=== PATIENT | female | born 1990 | race Caucasian/White ===

== ENCOUNTER 2017-01-14 11:20 | Inpatient (IN) | payer OTHER ==
[~2017-01-14] VITALS: Ht 154.9 cm; Wt 74.1 kg
--- NOTE | ~2017-01-14 | FD ---
ADMIT: 01/14/2017 RM/LOC: 225 [facility] MR#: [id number] 2620 [facility] [address] [place] [id number] FANI SOTO [facility] [place] [address] Final Diagnosis SEX: F AGE: 26 : 1990 ADMISSION DATE: 01/14/2017 DISCHARGE DATE: 01/16/2017 FINAL DIAGNOSIS: Intrauterine at term. PROCEDURE: Spontaneous vaginal delivery. Althea Miramontes MD/ yayo JOB #: [id number] CC: Althea Miramontes MD, Attending Physician Althea Miramontes MD, Family Physician
--- NOTE | ~2017-01-14 | HP ---
ADMIT: 01/14/2017 RM/LOC: 225 [facility] MR#: [id number] [address] [place] [id number] FANI SOTO [address] [place] [address] History and Physical SEX: F AGE: 26 : 1990 DATE OF SERVICE: REASON FOR ADMISSION: Contractions. HISTORY OF PRESENT ILLNESS: The patient is a 26-year-old 2, para 0-0- 1-0, who presented to Labor and Delivery at 40-3/7th weeks' gestation with complaints of contractions. The patient's has been uncomplicated. At time of admission, the patient complained of contractions. She denied any vaginal bleeding or loss of fluid. LABORATORY DATA: Blood type A positive. Antibody screen negative. HIV negative. Gonorrhea and chlamydia negative. Rubella immune. RPR nonreactive. Hep B surface antigen negative. Normal quad screen. Normal 1- hour glucose tolerance test, and group B Strep negative. PAST MEDICAL HISTORY: Noncontributory. PAST SURGICAL HISTORY: D and C in 2015 for missed . CURRENT MEDICATIONS: vitamins daily. ALLERGIES: NO KNOWN MEDICAL ALLERGIES. SOCIAL HISTORY: The patient is . She denies any alcohol, tobacco, or drug use. FAMILY HISTORY: Noncontributory. PHYSICAL EXAMINATION: VITAL SIGNS: On admission, vital signs are stable. The patient is afebrile. GENERAL: The patient is alert and oriented, no acute distress. HEART: Regular rate and rhythm without murmurs, gallops, or rubs. LUNGS: Clear to auscultation bilaterally. ADMIT: 01/14/2017 RM/LOC: 225 [facility] MR#: [id number] [address] [place] [id number] FANI SOTO [address] [facility] [place] [address] History and Physical SEX: F AGE: 26 : 1990 ABDOMEN: Soft, nontender, gravid. EXTREMITIES: No edema. No calf tenderness. heart tones are in the 140s with moderate variability and accelerations present. Contractions every 2-5 minutes. Cervix 3 cm dilated, 70% effaced, and -2 station. ASSESSMENT AND PLAN: 1. A 26-year-old 2, para 0-0-1-0 at 40-3/7th weeks' gestation. 2. Active labor. Plan to admit in labor and we will anticipate a spontaneous vaginal delivery. Althea Miramontes MD/ geovanna JOB #: [id number] CC: Althea Miramontes, Attending Physician Althea Miramontes, Family Physician
[2017-01-17] MEDS ORDERED: PRENATAL VIT1 TAB PO (18:09)
[2017-01-17] MEDS ORDERED: NIPPLECREAM TP (18:09)
[2017-01-17] MEDS ORDERED: MOTRIN-DPS800 MG PO (18:09)
[2017-01-17] MEDS ORDERED: COLACE-DPS100 MG PO (18:09)
--- NOTE | 2017-02-06 07:25 | OR ---
ADMIT: 01/14/2017 RM/LOC: 225 [facility] MR#: [id number] [address] [place] [id number] ANTONIAFANI Jeison [address] [place] [address] Operative/Delivery Room Report SEX: F AGE: 26 : 1990 SURGERY DATE: 01/14/2017 SURGEON: Althea Miramontes MD PROCEDURE: Spontaneous vaginal delivery. PREOPERATIVE DIAGNOSES: 1. Intrauterine at 40-3/7th weeks' gestation. 2. Active labor. POSTOPERATIVE DIAGNOSES: 1. Intrauterine at 40-3/7th weeks' gestation. 2. Active labor. FINDINGS: Liveborn female , scores 9 at 1 minute, 9 at 5 minutes, weight 6 pounds 12 ounces. ESTIMATED BLOOD LOSS: 150 mL. ANESTHESIA: Local infiltration of 1% lidocaine. COMPLICATIONS: None. INDICATIONS FOR PROCEDURE: The patient is a 26-year-old 2, para 0-0-1- 0, who presented to Labor and Delivery at 40-3/7th weeks' gestation with complaints of contractions. The patient was noted to be in active labor on admission. The patient progressed through labor to completely dilated and pushed, bringing the infant's vertex to the perineum. DESCRIPTION OF PROCEDURE: The patient was noted to be complete and pushing with the 's vertex to the perineum. The patient pushed and the 's vertex delivered in the KAYDEN position over midline. She continued to push. ADMIT: 01/14/2017 RM/LOC: 225 [facility] MR#: [id number] [address] [id number] FANI SOTO [address] [place] [id number] Operative/Delivery Room Report SEX: F AGE: 26 : 1990 The anterior shoulder delivered, the posterior shoulder followed, and the remainder of the delivered without difficulty as well. The was dried and handed off to the mother's abdomen. Twenty units of Pitocin were placed in IV bag to firm the uterus. The cord was clamped and cut. The placenta then delivered intact spontaneously. The cervix was examined. It was noted to be free of lacerations. The vaginal vault and perineum were examined and there was noted to be a second-degree midline laceration, which was repaired in the usual fashion using 2-0 Vicryl after local infiltration of 1% lidocaine. There was also noted be a left labial laceration which was brought together in a subcuticular fashion using 3-0 Vicryl. The patient tolerated the procedure well. All sponge and needle counts were correct. The patient and her recovered in the room in stable condition. Althea Miramontes MD/ geovanna JOB #: [id number] CC: Althea Miramontes, Attending Physician Althea Miramontes, Family Physician
== END 2017-01-16 16:15 | disposition home or self-care (01) | DRG 775 ==
LOC: 2LDRP 11:20 → BC 11:20 → 2LDRP 15:57
PROVIDERS: ADMIT Obstetrics & Gynecology
DX: O48.0 Post-term pregnancy (principal); O70.1 Second degree perineal laceration during delivery; Z3A.40 40 weeks gestation of pregnancy; Z37.0 Single live birth